=== PATIENT | male | born 1985 | race Asian ===

== ENCOUNTER 2018-10-19 14:01 | Outpatient (CLI) | payer BC ==
--- NOTE | 2018-10-19 15:07 | ULT ---
ULTRASOUND RETROPERITONEUM COMPLETE: (RENAL) DATE: 10/19/2018. HISTORY: A 32-year-old male with suprapubic pain. FINDINGS: Right kidney: 11.5 x 4 x 4.5 cm. Left kidney: 11.5 x 4.5 x 5.5 cm. No moderate-sized or large cystic or solid renal mass identified. No hydronephrosis bilaterally. Prevoid urinary bladder volume 250 mL. Postvoid bladder volume 25 mL. Bilateral ureteral jets demonstrated. On the prevoid images of the urinary bladder, there is a layer of intermediate to high echogenicity m aterial at the posterior, dependent portion of the bladder lumen. It is uncertain whether this is re al or artifact. IMPRESSION: 1. Questionable sludge or blood versus artifact in the bladder lumen. Recommend correlation with ur inalysis. 2. Incomplete micturition. 3. Otherwise, negative. HARDEEP Rivers POS: JAVIER
== END 2018-10-19 14:02 | disposition home or self-care (01) ==
LOC: SCSULT 14:01
PROVIDERS: ATTEND Family Medicine
DX: R10.2 Pelvic and perineal pain (principal); R39.198 Other difficulties with micturition
CPT/HCPCS: 76770